=== PATIENT | female | born 1995 | race Two or more races ===

== ENCOUNTER 2024-05-10 04:19 | Inpatient (IN) | payer MEDICAID, SELFPAY ==
[2024-05-10] MEDS ORDERED: hydrALAZINE 20 MG/ML VIAL SLOW IVP PRN ×2 (05:01→10:14)
[2024-05-10] MEDS ORDERED: Promethazine HCl 25 MG/ML VIAL IM PRN ×2 (05:01→06:00)
[2024-05-10] MEDS ORDERED: Carboprost 250 MCG/ML AMP IM PRN (05:01)
[2024-05-10] MEDS ORDERED: Famotidine/PF 20 mg/2ml Vial SLOW IVP PRN (05:01)
[2024-05-10] MEDS ORDERED: Misoprostol 200 MCG TAB PR PRN ×2 (05:01→10:14)
[2024-05-10] MEDS ORDERED: Ondansetron PF 4 MG/2 ML Vial IVP PRN ×4 (05:01→10:14)
[2024-05-10] MEDS ORDERED: Diphenoxylate HCl/Atropine Tablet PO PRN (05:01)
[2024-05-10] MEDS ORDERED: Bicitra 30 ML UDCUP PO PRN (05:01)
[2024-05-10] MEDS ORDERED: Tranexamic Acid 1,000 MG/10 ML VIAL IVP PRN (05:01)
[2024-05-10] MEDS ORDERED: Methylergonovine 0.2 MG/ML VIAL IM PRN ×2 (05:01→10:14)
[2024-05-10] MEDS: Betamet Acet/Betamet Na Ph 30 MG/5 ML VIAL ONE (05:13)
[2024-05-10] MEDS ORDERED: CEFAZOLIN 2 GM in Sodium Chloride 0.9% 100 ML IVPB SCH (05:15)
[2024-05-10] MEDS ORDERED: Betamet Acet/Betamet Na Ph 30 MG/5 ML VIAL IM SCH (05:15)
[2024-05-10] MEDS ORDERED: Magnesium Sulfate 20 gm/500 ml 20 GM/500 ML BAG IVPB SCH (05:15)
[2024-05-10] MEDS ORDERED: Oxytocin 30 units/NS 500 ML 500 ML IV SCH ×2 (05:15→10:14)
[2024-05-10] MEDS ORDERED: Lactated Ringer's 1,000 ML IV SCH (05:15)
[2024-05-10 05:53] LABS: Hematocrit 34.4 % (34.9-44.5); Hemoglobin 12.2 g/dL (12.0-15.5); Mean Corpuscular HGB CONC 35.5 g/dL (32.0-36.0); Mean Corpuscular Hemoglobin 28.5 pg (27.0-33.0); Mean Corpuscular Volume 80.4 fL (81.6-98.3); Mean Platelet Volume 10.9 fL (7.4-10.4); Platelet Count 105 10x3/uL (150-450); RBC Distribution Width 13.7 % (11.5-14.5); Red Blood Cell (RBC) Count 4.28 10x6/uL (3.90-5.03); White Blood Cell (WBC) Count 12.2 10x3/uL (3.5-10.5)
[2024-05-10] MEDS ORDERED: fentaNYL 50 mcg/mL 1 mL Vial SLOW IVP PRN (06:00)
[2024-05-10] MEDS ORDERED: Meperidine HCl/PF 25 MG (1 mL) VIAL SLOW IVP PRN (06:00)
[2024-05-10] MEDS ORDERED: Naloxone HCl 0.4 mg/ml Vial IV PRN (06:00)
[2024-05-10] MEDS ORDERED: Moisturizing Cream (Eucerin) 113 GM JAR TOP PRN (06:00)
[2024-05-10] MEDS ORDERED: Morphine 4 MG/ML VIAL SLOW IVP PRN (06:00)
[2024-05-10] MEDS ORDERED: Communication Order-Pharmacy FS SCH (06:00)
[2024-05-10] MEDS ORDERED: Naloxone HCl 0.4 mg/ml Vial IVP PRN ×2 (06:00)
[2024-05-10 06:07] LABS: HBsAg Index 0.25 S/CO (0-0.99); Hep B Surf Ag - L&D Non-Reactive S/CO (NonReactive)
[2024-05-10 06:08] LABS: Syphilis Antibody Nonreactive (Nonreactive); Syphilis Antibody Index 0.13 S/CO (<1.00 Non-Reactive)
[2024-05-10] MEDS ORDERED: Lanolin Ointment 7 GM TUBE TOP PRN (10:14)
[2024-05-10] MEDS ORDERED: diphenhydrAMINE 25 MG CAP PO PRN (10:14)
[2024-05-10] MEDS: CEFAZOLIN 2 GM VIAL ONE (10:20)
[2024-05-10] MEDS: PROPOFOL 20 ML ONE (10:21)
[2024-05-10] MEDS: SUCCINYLCHOLINE/SOD CL,ISO/PF 200 MG/10 ML SYRINGE FS ONE (10:21)
[2024-05-10] MEDS: Magnesium Sulfate 20 gm/500 ml 20 GM/500 ML BAG ONE (10:21)
[2024-05-10] MEDS: Ondansetron PF 4 MG/2 ML Vial ONE (10:21)
[2024-05-10] MEDS: Dexmedetomidine 200 MCG/2 ML VIAL ONE (10:21)
[2024-05-10] MEDS: fentaNYL 50 mcg/mL 1 mL Vial ONE (10:21)
[2024-05-10] MEDS: Morphine PF 10 MG/10 ML VIAL ONE (10:21)
[2024-05-10] MEDS: Oxytocin 10 UNITS/ML VIAL ONE ×2 (10:22)
[2024-05-10] MEDS: PHENYLEPHRINE-NS 100 MCG/ML 10 ML SYRINGE ONE (10:22)
[2024-05-10] MEDS: ePHEDrine Sulfate 50 MG/10 ML VIAL ONE (10:22)
[2024-05-10] MEDS: Famotidine/PF 20 mg/2ml Vial ONE (10:22)
[2024-05-10] MEDS: Docusate 100 MG CAP PO SCH ×2 (11:21→21:09)
[2024-05-10] MEDS: Ferrous Sulfate 325 MG TAB PO SCH ×2 (11:21→21:18)
[2024-05-10] MEDS: Boostrix 0.5 ML (Tdap) VIAL (>/=7 yrs of age) IM ONE (11:21)
[2024-05-10] MEDS: Prenatal Vitamin 1 TAB PO SCH (11:22)
[2024-05-10] MEDS: Ketorolac Tromethamine 30 MG (1 mL) VIAL IVP PRN (11:25)
[2024-05-10] MEDS: diphenhydrAMINE 50 MG/ML VIAL IVP PRN (12:58)
[2024-05-10] MEDS: Lactated Ringer's 500 ML IV SCH ×2 (17:52→21:19)
[2024-05-10 18:03] LABS: Mean Platelet Volume 11.3 fL (7.4-10.4); Platelet Count 112 10x3/uL (150-450)
[2024-05-10 18:04] LABS: Hemoglobin 10.9 g/dL (12.0-15.5); Mean Corpuscular HGB CONC 34.1 g/dL (32.0-36.0); Mean Corpuscular Hemoglobin 28.2 pg (27.0-33.0); Mean Corpuscular Volume 82.7 fL (81.6-98.3); RBC Distribution Width 13.6 % (11.5-14.5); Red Blood Cell (RBC) Count 3.87 10x6/uL (3.90-5.03)
[2024-05-10 18:05] LABS: MDiff Complete? YES
[2024-05-10 18:12] LABS: ALT (SGPT) 10 U/L (8-55); AST (SGOT) 21 U/L (5-34); Alkaline Phosphatase 113 U/L (40-110); Anion Gap 11 mmol/L (10-20); BUN (Urea Nitrogen) 9 mg/dL (7.0-18.7); Bilirubin, Total 0.4 mg/dL (0.2-1.2); Calc. Creatinine Clearance 0 mL/min (70-130); Calcium 9.1 mg/dL (7.8-10.44); Carbon Dioxide 18 mmol/L (22-29); Chloride 110 mmol/L (98-107); Estimated GFR 123; Globulin 3.5 g/dL (2.4-3.5); Glucose 132 mg/dL (70-105); Potassium 4.1 mmol/L (3.5-5.1); Protein, Total 5.5 g/dL (6.0-8.3); Sodium 135 mmol/L (136-145)
[2024-05-10 18:33] LABS: Band 30 % (5-11); Lymphocytes 7 % (21-51); Monocytes 3 % (0-10); Neutrophil 60 % (42-75)
[2024-05-10 18:34] LABS: Platelet Adequacy Comment Appears Decreased
[2024-05-10 18:35] LABS: Large Platelets SLIGHT (None Seen); RBC Morph Comment Within Normal Limits
[2024-05-10 20:01] VITALS: BMI 29.7
[2024-05-10] MEDS: GENTAMICIN SULFATE IVPB SCH (21:11)
[2024-05-10] MEDS: ADMIXTURE FEE IVPB SCH (21:11)
[2024-05-10] MEDS: SODIUM CHLORIDE IVPB SCH (21:11)
[2024-05-11] MEDS: Ampicillin 2 GM in Sodium Chloride 0.9% 100 ML IVPB SCH (00:42)
[2024-05-11 06:58] LABS: Hematocrit 29.6 % (34.9-44.5); Hemoglobin 10.3 g/dL (12.0-15.5); Mean Corpuscular HGB CONC 34.8 g/dL (32.0-36.0); Mean Corpuscular Hemoglobin 28.5 pg (27.0-33.0); Mean Corpuscular Volume 81.8 fL (81.6-98.3); Mean Platelet Volume 11.5 fL (7.4-10.4); Platelet Count 121 10x3/uL (150-450); Red Blood Cell (RBC) Count 3.62 10x6/uL (3.90-5.03); White Blood Cell (WBC) Count 11.9 10x3/uL (3.5-10.5)
[2024-05-11] MEDS: Prenatal Vitamin 1 TAB PO SCH (08:44)
[2024-05-11] MEDS: Acetaminophen 325 MG TAB PO PRN (08:44)
[2024-05-11] MEDS: Simethicone Chewable 80 MG TAB PO PRN (08:44)
[2024-05-11] MEDS: Ibuprofen 800 MG TAB PO SCH (08:45)
[2024-05-11] MEDS: HYDROcodone/Acetaminophen 5/325 mg Tablet PO PRN ×2 (11:30→20:20)
[2024-05-11] MEDS: Lactated Ringer's 500 ML IV SCH (11:31)
[2024-05-11] MEDS ORDERED: Ibuprofen 800 MG TAB PO SCH (14:00)
[2024-05-12 07:32] LABS: #Basophils 0.01 10x3/uL (0.0-0.2); #Eosinphils 0.03 10x3/uL (0.0-0.5); #Monocytes 0.59 10x3/uL (0.0-1.1); #Neutrophils 8.55 10x3/uL (1.5-8.4); %Basophils 0.1 % (0.0-2.0); %Eosinophils 0.2 % (0.0-6.0); %Lymphocytes 23.2 % (18.0-47.0); %Monocytes 4.9 % (0.0-10.0); %Neutrophils 71.2 % (40.0-75.0); Hematocrit 31.9 % (34.9-44.5); Hemoglobin 10.8 g/dL (12.0-15.5); Mean Corpuscular HGB CONC 33.9 g/dL (32.0-36.0); Mean Corpuscular Hemoglobin 28.1 pg (27.0-33.0); Mean Corpuscular Volume 83.1 fL (81.6-98.3); Mean Platelet Volume 11.5 fL (7.4-10.4); Platelet Count 158 10x3/uL (150-450); RBC Distribution Width 14.5 % (11.5-14.5); Red Blood Cell (RBC) Count 3.84 10x6/uL (3.90-5.03)
[2024-05-13 08:01] VITALS: BP 118/70; TEMP 97.6
[2024-05-14 12:25] LABS: ANA Symphony (Qualitative) Negative (Negative); ANA Symphony (Quantitative) 0.1 Ratio (< 0.7 Negative); dsDNA IgG Antibody 1.7 IU/mL (<10 Negative)
== END 2024-05-13 16:00 | disposition home or self-care (01) | DRG 787 ==
LOC: CSHLD/OP 04:19 → CSHLD 04:53 → CSHPP 09:05
PROVIDERS: ADMIT Family Medicine; ATTEND Family Medicine
PROC: 10D00Z1 Extraction of Products of Conception, Low, Open Approach (ICD-10-PCS; principal; 2024-05-10)
DX: O32.1XX0 Maternal care for breech presentation, not applicable or unspecified (principal); O99.324 Drug use complicating childbirth; Z3A.29 29 weeks gestation of pregnancy; Z37.0 Single live birth; O30.043 Twin pregnancy, dichorionic/diamniotic, third trimester; Z79.899 Other long term (current) drug therapy; O26.893 Other specified pregnancy related conditions, third trimester; Z67.41 Type O blood, Rh negative; O99.892 Other specified diseases and conditions complicating childbirth; O26.53 Maternal hypotension syndrome, third trimester; R00.1 Bradycardia, unspecified
CPT/HCPCS: 36415; 71045; 80053; 82533; 83605; 84145; 84443; 85025; 85027; 86038; 86225; 86780; 86850; 86870; 86900; 86901; 86922; 87040; 87340; 88307; 93005; 93010; J0290; J0702; J1200; J1580; J1885; J2274; J2405; J2590; J2704; J3010; J3490; J7120